=== PATIENT | female | born 1990 | race American Indian/Alaskan Native ===

== ENCOUNTER 2021-10-26 06:16 | Emergency (ER) | payer MEDICAID | END 2021-10-26 07:05 | disposition home or self-care (01) | LOC: FB.ED 06:16 | DX: O9A.212 Injury, poisoning and certain other consequences of external causes complicating pregnancy, second trimester (principal); S39.012A Strain of muscle, fascia and tendon of lower back, initial encounter; Z3A.28 28 weeks gestation of pregnancy; Z79.899 Other long term (current) drug therapy; Y04.0XXA Assault by unarmed brawl or fight, initial encounter | CPT/HCPCS: 99282; 99284 ==